=== PATIENT | male | born 1960 | race Caucasian/White ===

== ENCOUNTER 2018-08-10 14:04 | Emergency (ER) | payer OTHER ==
[~2018-08-10] VITALS: Ht 160 cm; Wt 81.6 kg
[2018-08-10 14:22] VITALS: Ht 160 cm; Wt 81.6 kg
[2018-08-10 15:54] VITALS: BP 130/85
== END 2018-08-10 16:15 | disposition home or self-care (01) ==
LOC: ED 14:04
DX: Z76.0 Encounter for issue of repeat prescription (principal); I10 Essential (primary) hypertension; Z98.890 Other specified postprocedural states

== ENCOUNTER 2020-01-12 13:25 | Emergency (ER) | payer MEDICAID, SELFPAY ==
[~2020-01-12] VITALS: Ht 162.6 cm; Wt 83.9 kg
[2020-01-12 13:27] VITALS: Ht 162.6 cm; Wt 83.9 kg
[2020-01-12 14:29] VITALS: BP 125/69
== END 2020-01-12 14:29 | disposition home or self-care (01) ==
LOC: ED 13:25
DX: U07.1 COVID-19 (principal); R50.9 Fever, unspecified; I10 Essential (primary) hypertension; Z86.73 Personal history of transient ischemic attack (TIA), and cerebral infarction without residual deficits